=== PATIENT | female | born 1960 | race Caucasian/White ===

== ENCOUNTER 2018-06-10 08:55 | Day surgery (SDC) | payer OTHER ==
[~2018-06-10] VITALS: Ht 175.3 cm; Wt 113.4 kg
[2018-06-10] MEDS ORDERED: DEXAMETHASONE SOD PHOSPHATE 4 MG/ML VIAL IVP ONE (11:20)
[2018-06-10] MEDS ORDERED: NS IRRIG SOLN 1000 ML IR ONE (11:20)
[2018-06-10] MEDS ORDERED: LR 1,000 ML IV.SOLN IV ONE (11:20)
[2018-06-10] MEDS ORDERED: SEVOFLURANE 15 MIN GAS INH ONE (11:20)
[2018-06-10] MEDS ORDERED: LIDOCAINE/EPI 1% 1:100000 20 ML VIAL INJ ONE (11:20)
[2018-06-10] MEDS ORDERED: ROCURONIUM BROMIDE 10 MG/ML (ZEMURON) IV ONE (11:20)
[2018-06-10] MEDS ORDERED: ONDANSETRON HCL 4 MG/2 ML VIAL IVP ONE (11:20)
[2018-06-10] MEDS ORDERED: CLINDAMYCIN PHOSPHATE 900 mg/50mL D5W IV ONE (11:20)
[2018-06-10] MEDS ORDERED: fentaNYL CITRATE/PF 100 MCG/2 ML AMP IVP ONE (11:20)
[2018-06-10] MEDS ORDERED: NEOSTIGMINE METHYLSULFATE 1 MG/ML, 10 ML VIAL IVP ONE (11:20)
[2018-06-10] MEDS ORDERED: MIDAZOLAM HCL 5 MG/5 ML VIAL IVP ONE (11:20)
[2018-06-10] MEDS ORDERED: GLYCOPYRROLATE 0.2 MG/ML VIAL IJ ONE (11:20)
[2018-06-10] MEDS ORDERED: PROPOFOL 200MG/ 20ML VIAL (DIPRIVAN) IV ONE (11:20)
[2018-06-10] MEDS ORDERED: ONDANSETRON HCL 4 MG/2 ML VIAL IVP PRN (12:15)
[2018-06-10] MEDS ORDERED: fentaNYL CITRATE/PF 100 MCG/2 ML AMP IVP PRN ×2 (12:15)
[2018-06-10] MEDS ORDERED: fentaNYL CITRATE/PF 100 MCG/2 ML AMP ONE (13:43)
[2018-06-10] MEDS ORDERED: ACETAMINOPHEN WITH CODEINE 12.5 ML UDC PO PRN (13:45)
[2018-06-10 14:00] VITALS: BP_SYST 106
[2018-06-10] MEDS ORDERED: ACETAMINOPHEN WITH CODEINE 12.5 ML UDC ONE (14:16)
== END 2018-06-10 15:20 | disposition home or self-care (01) ==
LOC: SDS 08:55 → EDBD 08:55 → SDS 15:20
PROVIDERS: ATTEND Otolaryngology Plastic Surgery within the Head & Neck
DX: C06.2 Malignant neoplasm of retromolar area (principal)
CPT/HCPCS: 42106; 88305; 88331; J1100; J2250; J2405; J2704; J2710; J3010; J3490 ×2; J7120; 88307